=== PATIENT | female | born 2000 | race Caucasian/White ===

== ENCOUNTER 2021-08-14 01:06 | Inpatient (IN) | payer BC ==
[2021-08-14 02:02] LABS: #Basophils 0.1 10x3/uL (0.0-0.2); #Eosinphils 0.2 10x3/uL (0.0-0.5); #Neutrophils 10.1 10x3/uL (1.5-8.4); %Basophils 0.6 % (0.0-2.0); %Eosinophils 1.3 % (0.0-6.0); %Lymphocytes 19.7 % (18.0-47.0); %Monocytes 6.9 % (0.0-10.0); %Neutrophils 70.5 % (40.0-75.0); Hemoglobin 11.8 g/dL (12.0-15.5); Mean Corpuscular HGB CONC 35.3 g/dL (32.0-36.0); Mean Corpuscular Volume 87.7 fl (81.6-98.3); Mean Platelet Volume 9.9 fl (7.4-10.4); Platelet Count 198 10x3/uL (150-450); RBC Distribution Width 11.9 % (11.5-14.5); Red Blood Cell (RBC) Count 3.81 10x6/uL (3.90-5.03); White Blood Cell (WBC) Count 14.3 10x3/uL (3.5-10.5)
[2021-08-14 02:17] LABS: ALT (SGPT) 42 U/L (8-55); AST (SGOT) 50 U/L (5-34); Albumin 3.5 g/dL (3.5-5.0); Alkaline Phosphatase 117 U/L (40-110); Anion Gap 16 mmol/L (10-20); BUN (Urea Nitrogen) 14 mg/dL (7.0-18.7); Bilirubin, Total 0.3 mg/dL (0.2-1.2); Calc. Creatinine Clearance 0 mL/min (70-130); Carbon Dioxide 19 mmol/L (22-29); Chloride 106 mmol/L (98-107); Globulin 2.9 g/dL (2.4-3.5); Glucose 83 mg/dL (70-105); Potassium 3.8 mmol/L (3.5-5.1); Protein, Total 6.4 g/dL (6.0-8.3); Sodium 137 mmol/L (136-145)
[2021-08-14 02:27] LABS: Bilirubin Neg (Negative); Blood, Urine 150 (Negative); Clarity Slightly Cloudy (Clear); Glucose, Urine (Dipstick) Normal (Negative); Ketone, Urine Negative (Negative); Leukocyte 100 (Negative); Nitrite Negative (Negative); Protein, Urine (Dipstick) Negative (Neg-Trace); Specific Gravity, Urine 1.015 (1.002-1.036); Urobilinogen Normal mg/dL (Less than 2); pH, Urine 6.5 (5.0-9.0)
[2021-08-14 02:36] LABS: Bacteria/HPF 2+ HPF (None Seen)
[2021-08-14] MEDS ORDERED: Ondansetron PF 4 MG/2 ML Vial ONE (03:03)
[2021-08-14] MEDS ORDERED: hydrALAZINE 20 MG/ML VIAL SLOW IVP PRN (04:14)
[2021-08-14 04:39] VITALS: BMI 29.2
[2021-08-14 04:41] LABS: Creatinine, Urine 62.55 mg/dL (47-110); Protein, Urine Random Quant Less than 10 mg/dL (1-14)
[2021-08-14] MEDS: Ondansetron PF 4 MG/2 ML Vial IVP PRN ×2 (05:56→11:54)
[2021-08-14] MEDS ORDERED: Mag-Al Plus 1200 MG/1200 MG/120 MG/30 ML UDCUP PO SCH (10:15)
[2021-08-14] MEDS ORDERED: Diphenoxylate HCl/Atropine Tablet PO PRN ×2 (13:01)
[2021-08-14] MEDS ORDERED: Butorphanol Tartrate 1 MG/ML VIAL SLOW IVP PRN (13:01)
[2021-08-14] MEDS ORDERED: Lidocaine 1% (PF) 30 ML VIAL SC PRN (13:01)
[2021-08-14] MEDS ORDERED: Acetaminophen 500 MG TAB PO PRN (13:01)
[2021-08-14] MEDS ORDERED: HYDROcodone/Acetaminophen 5/325 mg Tablet PO PRN ×2 (13:01)
[2021-08-14] MEDS ORDERED: Misoprostol 200 MCG TAB PR PRN (13:01)
[2021-08-14] MEDS ORDERED: Ibuprofen 800 MG TAB PO PRN (13:01)
[2021-08-14] MEDS ORDERED: Promethazine HCl 25 MG/ML VIAL IM PRN (13:01)
[2021-08-14] MEDS ORDERED: NS w/ Oxytocin 30 units 500 ML IV SCH (13:15)
[2021-08-14] MEDS ORDERED: Misoprostol 100 MCG TAB VAG SCH (13:15)
[2021-08-14] MEDS ORDERED: Lactated Ringer's 1,000 ML IV SCH (13:15)
[2021-08-14] MEDS: Misoprostol 100 MCG TAB VAG SCH (14:03)
[2021-08-14] MEDS ORDERED: Labetalol HCl 200 MG TAB PO SCH (15:30)
[2021-08-14 15:49] LABS: SARS-CoV-2 NAA Rapid Test Not Detected (NotDetected)
[2021-08-14 17:58] LABS: Hemoglobin 11.5 g/dL (12.0-15.5); Mean Corpuscular HGB CONC 34.5 g/dL (32.0-36.0); Mean Corpuscular Hemoglobin 30.3 pg (27.0-33.0); Mean Corpuscular Volume 87.6 fl (81.6-98.3); Mean Platelet Volume 9.9 fl (7.4-10.4); Platelet Count 128 10x3/uL (150-450); White Blood Cell (WBC) Count 12.8 10x3/uL (3.5-10.5)
[2021-08-14] MEDS: ceFAZolin Sodium/D5W 2 GM in Premix Bag 1 BAG IVPB SCH (18:02)
[2021-08-14 18:36] LABS: Syphilis Antibody Nonreactive (Nonreactive); Syphilis Antibody Index 0.02 S/CO (<1.00 Non-Reactive)
[2021-08-14 18:37] LABS: HIV (1/2) Antibody/Antigen Non-Reactive (NonReactive); HIV 1/2 INDEX 0.05 S/CO (<1.00); Hep B Surf Ag Non-Reactive S/CO (NonReactive)
[2021-08-14 18:48] LABS: HBSAg Index 0.19 S/CO (0-0.99)
[2021-08-15] MEDS ORDERED: Azithromycin 500 MG VIAL ONE (01:49)
[2021-08-15] MEDS ORDERED: Ondansetron PF 4 MG/2 ML Vial ONE (01:59)
[2021-08-15] MEDS ORDERED: Morphine PF 10 MG/10 ML VIAL ONE (01:59)
[2021-08-15] MEDS ORDERED: Dexamethasone 4 mg/ml Vial ONE (01:59)
[2021-08-15] MEDS ORDERED: PHENYLEPHRINE-NS 100 MCG/ML 10 ML SYRINGE ONE (01:59)
[2021-08-15] MEDS ORDERED: Oxytocin 10 UNITS/ML VIAL ONE (01:59)
[2021-08-15 03:11] LABS: Critical Notified Whom: RN; RapidComm Collect By RN
[2021-08-15] MEDS ORDERED: Zolpidem Tartrate 5 MG TAB PO PRN ×2 (03:46→16:45)
[2021-08-15] MEDS ORDERED: Lanolin Ointment 7 GM TUBE TOP PRN (03:46)
[2021-08-15] MEDS ORDERED: Simethicone Chewable 80 MG TAB PO PRN (03:46)
[2021-08-15] MEDS ORDERED: hydrALAZINE 20 MG/ML VIAL SLOW IVP PRN (03:46)
[2021-08-15] MEDS ORDERED: Bisacodyl 10 MG SUPP PR PRN (03:46)
[2021-08-15] MEDS ORDERED: HYDROcodone/Acetaminophen 5/325 mg Tablet PO PRN ×4 (03:46→16:45)
[2021-08-15] MEDS ORDERED: diphenhydrAMINE 25 MG CAP PO PRN (03:46)
[2021-08-15] MEDS ORDERED: Misoprostol 200 MCG TAB PR PRN (03:46)
[2021-08-15] MEDS ORDERED: Ondansetron PF 4 MG/2 ML Vial IVP PRN ×2 (03:46→04:38)
[2021-08-15] MEDS ORDERED: Boostrix 0.5 ML (Tdap) VIAL IM ONE (03:46)
[2021-08-15] MEDS ORDERED: NS w/ Oxytocin 30 units 500 ML IV SCH (04:00)
[2021-08-15] MEDS ORDERED: PROPOFOL 20 ML ONE (04:05)
[2021-08-15] MEDS ORDERED: Hydrocerin (Eucerin) Cream 120 gm Jar TOP PRN (04:38)
[2021-08-15] MEDS ORDERED: Promethazine HCl 25 MG SUPP PR PRN (04:38)
[2021-08-15] MEDS ORDERED: Naloxone HCl 0.4 mg/ml Vial IVP PRN ×2 (04:38)
[2021-08-15] MEDS ORDERED: Fentanyl 100 MCG/2 ML VIAL SLOW IVP PRN (04:38)
[2021-08-15] MEDS ORDERED: Naloxone HCl 0.4 mg/ml Vial IV PRN (04:38)
[2021-08-15] MEDS ORDERED: Promethazine HCl 25 MG/ML VIAL IM PRN (04:38)
[2021-08-15] MEDS ORDERED: Meperidine HCl/PF 25 MG/ML VIAL SLOW IVP PRN (04:38)
[2021-08-15] MEDS ORDERED: L&D-Morphine 4 MG/ML VIAL SLOW IVP PRN (04:38)
[2021-08-15] MEDS ORDERED: diphenhydrAMINE 50 MG/ML VIAL IVP PRN (04:38)
[2021-08-15] MEDS ORDERED: Ondansetron HCl/PF 4 MG/2 ML Vial IVP PRN (04:38)
[2021-08-15] MEDS ORDERED: Ketorolac Tromethamine 30 MG/ML VIAL IVP SCH (04:45)
[2021-08-15] MEDS ORDERED: Communication Order-Pharmacy FS SCH (04:45)
[2021-08-15] MEDS: Misoprostol 100 MCG TAB VAG SCH (12:13)
[2021-08-15] MEDS: Prenatal Vitamin 1 TAB PO SCH (12:14)
[2021-08-15] MEDS: Docusate Calcium (SURFAK) 240 MG CAP PO SCH ×2 (12:14→22:08)
[2021-08-15] MEDS: Ferrous Sulfate 325 MG TAB PO SCH ×2 (12:14→16:05)
[2021-08-15] MEDS: Lactated Ringer's 1,000 ML IV SCH ×2 (16:03→16:18)
[2021-08-15] MEDS: Ketorolac Tromethamine 30 MG/ML VIAL IVP PRN (16:09)
[2021-08-15] MEDS ORDERED: Butorphanol Tartrate 1 MG/ML VIAL SLOW IVP PRN (16:45)
[2021-08-15] MEDS ORDERED: Diphenoxylate HCl/Atropine Tablet PO PRN ×2 (16:45)
[2021-08-15] MEDS: ceFAZolin Sodium/D5W 2 GM in Premix Bag 1 BAG IVPB SCH (22:09)
[2021-08-16] MEDS: Ketorolac Tromethamine 30 MG/ML VIAL IVP PRN (00:02)
[2021-08-16 06:00] LABS: Hemoglobin 8.4 g/dL (12.0-15.5); Mean Corpuscular HGB CONC 33.7 g/dL (32.0-36.0); Mean Corpuscular Hemoglobin 30.4 pg (27.0-33.0); Mean Corpuscular Volume 90.2 fl (81.6-98.3); Mean Platelet Volume 9.9 fl (7.4-10.4); Platelet Count 99 10x3/uL (150-450); RBC Distribution Width 12.5 % (11.5-14.5); Red Blood Cell (RBC) Count 2.76 10x6/uL (3.90-5.03); White Blood Cell (WBC) Count 11.8 10x3/uL (3.5-10.5)
[2021-08-16] MEDS: Lactated Ringer's 1,000 ML IV SCH ×3 (06:07→22:17)
[2021-08-16] MEDS: Ibuprofen 800 MG TAB PO SCH ×3 (06:39→23:13)
[2021-08-16] MEDS: Ferrous Sulfate 325 MG TAB PO SCH ×2 (08:27→16:33)
[2021-08-16] MEDS: Docusate Calcium (SURFAK) 240 MG CAP PO SCH ×2 (08:27→20:14)
[2021-08-16] MEDS: Prenatal Vitamin 1 TAB PO SCH (08:27)
[2021-08-16] MEDS: Acetaminophen 325 MG TAB PO PRN ×2 (11:42→20:14)
[2021-08-17] MEDS: Acetaminophen 325 MG TAB PO PRN ×2 (02:03→08:48)
[2021-08-17] MEDS: Ibuprofen 800 MG TAB PO SCH (05:35)
[2021-08-17] MEDS: Lactated Ringer's 1,000 ML IV SCH (06:10)
[2021-08-17 07:37] VITALS: BP 130/80; TEMP 98.4
[2021-08-17] MEDS: Docusate Calcium (SURFAK) 240 MG CAP PO SCH (08:48)
[2021-08-17] MEDS: Prenatal Vitamin 1 TAB PO SCH (08:48)
[2021-08-17] MEDS: Ferrous Sulfate 325 MG TAB PO SCH (08:48)
== END 2021-08-17 11:57 | disposition home or self-care (01) | DRG 788 ==
LOC: CSHERS 01:06 → CSHLD/OP 04:02 → CSHLD 12:50 → CSHPED 08-15 16:00
PROVIDERS: ADMIT Obstetrics & Gynecology; ATTEND Obstetrics & Gynecology
PROC: 10D00Z1 Extraction of Products of Conception, Low, Open Approach (ICD-10-PCS; principal; 2021-08-15)
PROC: 3E0P7VZ Introduction of Hormone into Female Reproductive, Via Natural or Artificial Opening (ICD-10-PCS; 2021-08-15)
PROC: 3E0234Z Introduction of Serum, Toxoid and Vaccine into Muscle, Percutaneous Approach (ICD-10-PCS; 2021-08-15)
DX: O13.4 Gestational [pregnancy-induced] hypertension without significant proteinuria, complicating childbirth (principal); Z3A.37 37 weeks gestation of pregnancy; Z37.0 Single live birth; O76 Abnormality in fetal heart rate and rhythm complicating labor and delivery; O69.2XX0 Labor and delivery complicated by other cord entanglement, with compression, not applicable or unspecified; Z20.822 Contact with and (suspected) exposure to COVID-19; O61.0 Failed medical induction of labor; Z88.1 Allergy status to other antibiotic agents; Z88.0 Allergy status to penicillin; Z88.2 Allergy status to sulfonamides; O26.893 Other specified pregnancy related conditions, third trimester; Z67.41 Type O blood, Rh negative
CPT/HCPCS: 36415; 51701; 71045; 76815; 76819; 80053; 81003; 81015; 82570; 82805; 84156; 84484; 84550; 85025; 85027; 85461; 86780; 86850; 86870; 86900; 86901; 87340; 87389; 88307; 90384; 93005; 96372; 96374; 99285; J0690; J1100; J1885; J2274; J2405; J2550; J2590; J2704; U0002